=== PATIENT | female | born 1950 | race Caucasian/White ===

== ENCOUNTER 2016-12-14 12:36 | Outpatient (CLI) | payer MEDICAID ==
[2016-12-14 17:51] LABS: BASOPHILS # (AUTO) 0.1 10^3/uL (0.0-0.1); BASOPHILS % (AUTO) 1.2 %; EOSINOPHILS # (AUTO) 0.2 10^3/uL (0.0-0.7); EOSINOPHILS % (AUTO) 2.5 %; HCT - HEMATOCRIT 43.7 % (37.0-47.0); LYMPHOCYTES % (AUTO) 36.3 %; MEAN CORPUSCULAR HEMOGLOBIN 30.3 pg (27.0-31.0); MEAN CORPUSCULAR HGB CONC 34.3 g/dL (32.0-36.0); MEAN CORPUSCULAR VOLUME 88.3 fL (81.0-99.0); MEAN PLATELET VOLUME 8.2 fL (7.9-10.8); MONOCYTES # (AUTO) 0.8 10^3/uL (0.0-1.0); MONOCYTES % (AUTO) 9.6 %; NEUTROPHILS # (AUTO) 4.1 10^3/uL (1.5-6.6); NEUTROPHILS % (AUTO) 50.4 %; RED BLOOD COUNT 4.95 10^6/uL (4.20-5.40); RED CELL DISTRIBUTION WIDTH 13.3 % (12.0-15.0); UNCORRECTED WHITE BLOOD COUNT 8.2 x10^3/uL; WHITE BLOOD COUNT 8.2 x10^3/uL (4.8-10.8)
== END 2016-12-14 12:37 | disposition home or self-care (01) ==
LOC: LAB.F 12:36
PROVIDERS: ATTEND Nurse Practitioner Family
DX: K57.92 Diverticulitis of intestine, part unspecified, without perforation or abscess without bleeding (principal)
CPT/HCPCS: 36415; 85025

== ENCOUNTER 2016-12-17 12:36 | Emergency (ER) | payer MEDICAID, MEDICARE ==
[2016-12-17 13:04] LABS: BILIRUBIN,URINE NEGATIVE (NEGATIVE)
[2016-12-17 13:08] LABS: UA CHARGE (STRIP ONLY) YES; UR CULTURE IF IND NOT INDICATED
[2016-12-17 13:26] LABS: BASOPHILS # (AUTO) 0.1 10^3/uL (0.0-0.1); BASOPHILS % (AUTO) 0.6 %; EOSINOPHILS # (AUTO) 0.1 10^3/uL (0.0-0.7); EOSINOPHILS % (AUTO) 0.5 %; HCT - HEMATOCRIT 42.4 % (37.0-47.0); HGB - HEMOGLOBIN 14.5 g/dL (12.0-16.0); LYMPHOCYTES # (AUTO) 2.2 10^3/uL (1.5-3.5); LYMPHOCYTES % (AUTO) 21.3 %; MEAN CORPUSCULAR HEMOGLOBIN 30.2 pg (27.0-31.0); MEAN CORPUSCULAR HGB CONC 34.2 g/dL (32.0-36.0); MEAN CORPUSCULAR VOLUME 88.2 fL (81.0-99.0); MEAN PLATELET VOLUME 7.5 fL (7.9-10.8); MONOCYTES # (AUTO) 0.7 10^3/uL (0.0-1.0); MONOCYTES % (AUTO) 6.6 %; NEUTROPHILS # (AUTO) 7.4 10^3/uL (1.5-6.6); RED BLOOD COUNT 4.81 10^6/uL (4.20-5.40); UNCORRECTED WHITE BLOOD COUNT 10.4 x10^3/uL; WHITE BLOOD COUNT 10.4 x10^3/uL (4.8-10.8)
[2016-12-17 13:38] LABS: ALBUMIN/GLOBULIN RATIO 1.8 (1.0-2.2); BILIRUBIN,TOTAL 1.2 mg/dL (0.2-1.0); CALCIUM 9.2 mg/dL (8.5-10.3); CREATININE 0.5 mg/dL (0.4-1.0); POTASSIUM 3.6 mmol/L (3.5-5.0); TOTAL PROTEIN 7.3 g/dL (6.7-8.2)
--- NOTE | 2016-12-17 15:37 | ED Physician Documentation ---
PD HPI ABD PAIN - Stated complaint Stated Complaint: ABD PX - Chief complaint Chief Complaint: Abd Pain - History obtained from History obtained from: Patient - History of Present Illness Timing - onset: How many weeks ago (2 1/2) Timing - duration: Weeks Timing - details: Gradual onset, Still present, Waxing and waning (had Diverticulitis and treated with Keflex/flagyl with improvement, but not fully resolved. Seen by PCP and had abx extended some. Has been off them for few days and having return of pain again. Had cbc done outpt couple days ago that was normal, so PCP did not think it was still infection.) Quality: Cramping, Aching, Pain Location: Suprapubic, LLQ Improved by: No: BM Worsened by: Palpation. No: Breathing, Position Associated symptoms: Nausea, Dysuria (mild). No: Fever, Vomiting, Diarrhea ( but loose, without blood), Constipation, Hematochezia Similar symptoms before: Diagnosis (diverticulitis) Recently seen: Clinic, Emergency Dept Review of Systems Constitutional: reports: Myalgias. denies: Fever, Chills Nose: denies: Rhinorrhea / runny nose, Congestion Throat: denies: Sore throat Respiratory: denies: Cough GI: reports: Abdominal Pain. 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 : None HEENT: None Psych: None Musculoskeletal: Chronic back pain Derm: None - Past Surgical History Past Surgical History: Yes General: Other HEENT: Tonsil/Adenoidectomy - Present Medications Home Medications: Ambulatory Orders Medication Instructions Recorded Confirmed Ciprofloxacin HCl [Cipro] 500 mg PO BID #14 tablet 12/17/16 Metronidazole [Flagyl] 500 mg PO BID #14 tablet 12/17/16 Naproxen 375 mg PO BID #15 tablet 12/17/16 - Allergies Allergies/Adverse Reactions: Allergies Allergy/AdvReac Type Severity Reaction Status Date / Time Penicillins Allergy Hives Verified 12/17/16 12:46 Sulfa (Sulfonamide Allergy Unknown Verified 12/17/16 12:46 Antibiotics) - Social History Does the pt smoke?: Yes Smoking Status: Current every day smoker Does the pt drink ETOH?: Yes Does the pt have substance abuse?: No - Family History Family history: reports: Non contributory - Immunizations Immunizations are current?: No Immunizations: TDAP current <10years, Other immun not current - POLST Patient has POLST: No PD ED PE NORMAL - Vitals Vital signs reviewed: Yes - General General: Alert and oriented X 3, No acute distress, Well developed/nourished - HEENT HEENT: Pharynx benign - Neck Neck: Supple, no meningeal sign, No adenopathy - Cardiac Cardiac: RRR, No murmur - Respiratory Respiratory: Clear bilaterally - Abdomen Abdomen: Normal bowel sounds, Soft, Non distended, No organomegaly, Other ( tender with local guarding but no percussion nor rebound tenderness LLQ area. ) - Female Female : Deferred - Rectal Rectal: Deferred - Derm Derm: Normal color, Warm and dry - Extremities Extremities: No deformity, No tenderness to palpate, No edema, No calf tenderness / cord - Neuro Neuro: Alert and oriented X 3, No motor deficit, Normal speech Results - Vitals Vitals: Oxygen O2 Source Room air - Labs Labs: Laboratory Tests 12/17/16 12/17/16 12/17/16 07:45 07:45 12:58 WBC 10.4 RBC 4.81 Hgb 14.5 Hct 42.4 MCV 88.2 MCH 30.2 MCHC 34.2 RDW 13.0 Plt Count 287 MPV 7.5 L Neut # 7.4 H Lymph # 2.2 [place] # 0.7 Eos # 0.1 Baso # 0.1 Absolute Nucleated RBC 0.00 Nucleated RBC % 0.0 Sodium 127 L Potassium 3.6 Chloride 93 L Carbon Dioxide 25 Anion Gap 9.0 BUN 7 Creatinine 0.5 Estimated GFR (MDRD) 124 Glucose 109 H Calcium 9.2 Total Bilirubin 1.2 H AST 18 ALT 22 Alkaline Phosphatase 58 Total Protein 7.3 Albumin 4.7 Globulin 2.6 Albumin/Globulin Ratio 1.8 Lipase 29 Urine Color YELLOW Urine Clarity CLEAR Urine pH 6.0 Ur Specific [place] <=1.005 Urine Protein NEGATIVE Urine Glucose (UA) NEGATIVE Urine Ketones NEGATIVE Urine Occult Blood NEGATIVE Urine Nitrite NEGATIVE Urine Bilirubin NEGATIVE Urine Urobilinogen 0.2 (NORMAL) Ur Leukocyte Esterase NEGATIVE Ur Microscopic Review NOT INDICATED Urine Culture Comments NOT INDICATED - Rads (name of study) abd CT Radiology: Prelim report reviewed (moderate sigmoid diverticulitis without abscess nor perforation. ) PD MEDICAL DECISION MAKING - ED course Complexity details: reviewed results (diverticulitis present in sigmoid. No complications. She would prefer to treat outpatient. Had not resolved with Keflex/Flagyl. Allergic to PCN so can't use Augmentin. also allergic to Sulfa. Talked with her about quinolone as option and seems limited to that at this time. ), considered differential, d/w patient Departure - Departure Disposition: Home, Self Care Clinical Impression: Diverticulitis of sigmoid colon Abdominal pain Qualifiers: Abdominal location: left lower quadrant Qualified Code(s): R10.32 - Left lower quadrant pain Condition: Stable Record reviewed to determine appropriate education?: Yes Instructions: ED Diverticulitis Follow-Up: Olivia Miner ARNP [Primary Care Provider] - Prescriptions: Ciprofloxacin HCl [Cipro] 500 mg PO BID #14 tablet Metronidazole [Flagyl] 500 mg PO BID #14 tablet Naproxen 375 mg PO BID #15 tablet Comments: Cipro and metronidazole both twice daily for the next week to 10 days for the diverticulitis. Naproxen twice daily for the next week for inflammation. Do probiotics and stool softeners during this time. Add Tylenol or the Percocet you have at home if needed for pains. Recheck with us or your primary care if not improved over the next 3-4 days. Discharge Date/Time: 12/17/16 18:10
[2016-12-17] MEDS ORDERED: SODIUM CHLORIDE 0.9% 1,000 ML IV ONE (16:04)
[2016-12-17] MEDS ORDERED: KETOROLAC 60 MG/2 ML VIAL IVP STA (16:04)
[2016-12-17] MEDS ORDERED: HYDROmorphone 0.5 MG/0.5 ML SYRINGE IVP STA (16:04)
[2016-12-17] MEDS ORDERED: metroNIDAZOLE 500 MG/100 ML 500 MG/100 ML BAG IV ONE (16:05)
[2016-12-17] MEDS ORDERED: HYDROmorphone 1 MG/ML SYRINGE IVP STA (16:09)
[2016-12-17] MEDS ORDERED: HYDROmorphone 1 MG/ML SYRINGE ONE (16:17)
[2016-12-17] MEDS ORDERED: KETOROLAC 30 MG/ML VIAL ONE (16:18)
[2016-12-17] MEDS ORDERED: metroNIDAZOLE 500 MG/100 ML 500 MG/100 ML BAG ONE (16:18)
[2016-12-17] MEDS ORDERED: IOPAMIDOL-300 100 ML VIAL ONE (16:26)
[2016-12-17] MEDS ORDERED: SODIUM CHLORIDE FLUSH 0.9% 10 ML SYRINGE IVP ONE (16:27)
[2016-12-17] MEDS ORDERED: IOPAMIDOL-300 100 ML VIAL IVP ONE (16:50)
[2016-12-17] MEDS ORDERED: KETOROLAC 60 MG/2 ML VIAL ONE (16:54)
--- NOTE | 2016-12-17 17:12 | CT Preliminary Report ---
Exam: CT ABDOMEN/PELVIS W/ IMPRESSION: 1. Moderate acute sigmoid diverticulitis without evidence for perforation or abscess. 2. Minimal free fluid in the pelvis in the posterior cul-de-sac. 3. Otherwise, as above. [facility] SITE ID: [id number]
--- NOTE | 2016-12-17 17:15 | CT Report ---
EXAM: CT ABDOMEN AND PELVIS EXAM DATE: 12/17/2016 04:50 PM. CLINICAL HISTORY: Left lower quadrant pain for 2 weeks despite PO meds for divertic. COMPARISONS: CT abdomen pelvis 05/05/2015. TECHNIQUE: Routine helical CT imaging was performed through the abdomen and pelvis. IV contrast: 100 mL Isovue 300. Enteric contrast: No. Reconstructions: Coronal and sagittal. In accordance with CT protocol optimization, one or more of the following dose reduction techniques w ere utilized for this exam: automated exposure control, adjustment of mA and/or KV based on patient s ize, or use of iterative reconstructive technique. FINDINGS: Lung Bases: Unremarkable. Liver: Small nonspecific low density mass seen in the left hepatic lobe lateral segment measures 9 mm and appears unchanged, could represent a small liver cyst. Gallbladder/Bile Ducts: Unremarkable. Spleen: Normal. Pancreas: Normal. Adrenal Glands: Normal. Kidneys: Small low density mass in the anterior right kidney, measures 9 mm, most likely a small priyanka l cyst. No hydronephrosis. Peritoneal Cavity/Bowel: Moderate diffuse colonic wall thickening with adjacent stranding consistent with acute diverticulitis, less severe than on the prior CT. No evidence for perforation or abscess. Mild sigmoid diverticulosis. Mild number of scattered diverticula in the descending and transverse co kathy. No evidence for bowel obstruction. Minimal free fluid in the pelvis in the posterior cul-de-sac Pelvic Organs: Normal. The bladder and visualized pelvic organs are within normal limits. Vasculature: No acute findings. Bones: No acute bone findings. IMPRESSION: 1. Moderate acute sigmoid diverticulitis without evidence for perforation or abscess. 2. Minimal free fluid in the pelvis in the posterior cul-de-sac. 3. Otherwise, as above. [facility] Referring Provider Line: [phone] SITE ID: [id number]
[2016-12-17] MEDS ORDERED: ACETAMINOPHEN 325 MG TABLET PO STA (17:47)
[2016-12-17] MEDS ORDERED: CIPROFLOXACIN 250 MG TABLET PO STA (17:47)
[2016-12-17] MEDS ORDERED: CIPROFLOXACIN 250 MG TABLET PO ONE (17:58)
[2016-12-17] MEDS ORDERED: ACETAMINOPHEN 325 MG TABLET PO ONE (17:58)
[2016-12-17 18:05] VITALS: BP 133/72
== END 2016-12-17 18:10 | disposition home or self-care (01) ==
LOC: ED 12:36
DX: K57.32 Diverticulitis of large intestine without perforation or abscess without bleeding (principal); F17.200 Nicotine dependence, unspecified, uncomplicated
CPT/HCPCS: 36415; 74177; 80053; 81003; 83690; 85025; 96365; 96375; 99283; 99284; A9270; J1170; Q9967; 81001; 87086

== ENCOUNTER 2018-11-15 08:04 | Outpatient (CLI) | payer MEDICAID, MEDICARE ==
[2018-11-15 09:13] LABS: BASOPHILS # (AUTO) 0.1 10^3/uL (0.0-0.1); BASOPHILS % (AUTO) 1.3 %; EOSINOPHILS # (AUTO) 0.3 10^3/uL (0.0-0.7); EOSINOPHILS % (AUTO) 4.9 %; LYMPHOCYTES # (AUTO) 2.4 10^3/uL (1.5-3.5); LYMPHOCYTES % (AUTO) 36.1 %; MEAN CORPUSCULAR HEMOGLOBIN 30.4 pg (27.0-31.0); MEAN CORPUSCULAR HGB CONC 33.6 g/dL (32.0-36.0); MEAN CORPUSCULAR VOLUME 90.5 fL (81.0-99.0); MEAN PLATELET VOLUME 9.8 fL (7.9-10.8); MONOCYTES # (AUTO) 0.7 10^3/uL (0.0-1.0); NEUTROPHILS # (AUTO) 3.1 10^3/uL (1.5-6.6); NEUTROPHILS % (AUTO) 46.4 %; PLT - PLATELET COUNT 261 10^3/uL (130-450); RED BLOOD COUNT 4.93 10^6/uL (4.20-5.40); RED CELL DISTRIBUTION WIDTH 12.9 % (12.0-15.0); WHITE BLOOD COUNT 6.7 x10^3/uL (4.8-10.8)
[2018-11-15 09:27] LABS: ALBUMIN 4.3 g/dL (3.2-5.5); ALBUMIN/GLOBULIN RATIO 1.7 (1.0-2.2); ALKALINE PHOSPHATASE 54 IU/L (42-121); ALT ALANINE AMINOTRANSFERASE 20 IU/L (10-60); AST ASPARTATE AMINOTRANSFERASE 17 IU/L (10-42); BILIRUBIN,TOTAL 1.3 mg/dL (0.2-1.0); BUN - BLOOD UREA NITROGEN 13 mg/dL (6-20); CALCIUM 9.2 mg/dL (8.5-10.3); CARBON DIOXIDE - CO2 28 mmol/L (21-32); CHLORIDE 100 mmol/L (101-111); CHOL/HDL RATIO 3.7 (<4.4); CHOLESTEROL 209 mg/dL; CREATININE 0.7 mg/dL (0.4-1.0); GFR - MDRD 84 (>89); GLUCOSE 101 mg/dL (70-100); HDL CHOLESTEROL 57 mg/dL; LDL CHOLESTEROL,CALCULATED 137 mg/dL; LDL/HDL RATIO 2.4 (<4.4); SODIUM 136 mmol/L (135-145); TOTAL PROTEIN 6.8 g/dL (6.7-8.2); VLDL CHOLESTEROL 15 mg/dL
== END 2018-11-15 08:05 | disposition home or self-care (01) ==
LOC: LAB 08:04
PROVIDERS: ATTEND Nurse Practitioner
DX: Z13.228 Encounter for screening for other metabolic disorders (principal); F17.210 Nicotine dependence, cigarettes, uncomplicated; Z13.6 Encounter for screening for cardiovascular disorders; Z13.220 Encounter for screening for lipoid disorders
CPT/HCPCS: 36415; 80053; 80061; 83721; 84443; 85025

== ENCOUNTER 2020-07-20 15:42 | Emergency (ER) | payer MEDICARE, OTHER ==
[2020-07-20 16:38] LABS: BASOPHILS # (AUTO) 0.1 10^3/uL (0.0-0.1); BASOPHILS % (AUTO) 0.5 %; EOSINOPHILS # (AUTO) 0.1 10^3/uL (0.0-0.7); HCT - HEMATOCRIT 45.2 % (37.0-47.0); HGB - HEMOGLOBIN 15.5 g/dL (12.0-16.0); LYMPHOCYTES # (AUTO) 1.6 10^3/uL (1.5-3.5); LYMPHOCYTES % (AUTO) 12.4 %; MEAN CORPUSCULAR HEMOGLOBIN 30.9 pg (27.0-31.0); MEAN CORPUSCULAR HGB CONC 34.3 g/dL (32.0-36.0); MEAN PLATELET VOLUME 10.1 fL (7.9-10.8); MONOCYTES # (AUTO) 0.7 10^3/uL (0.0-1.0); MONOCYTES % (AUTO) 5.3 %; NEUTROPHILS # (AUTO) 10.1 10^3/uL (1.5-6.6); NEUTROPHILS % (AUTO) 80.5 %; PLT - PLATELET COUNT 276 10^3/uL (130-450); RED BLOOD COUNT 5.02 10^6/uL (4.20-5.40); RED CELL DISTRIBUTION WIDTH 12.6 % (12.0-15.0); WHITE BLOOD COUNT 12.6 x10^3/uL (4.8-10.8)
[2020-07-20 16:45] LABS: ALBUMIN 4.8 g/dL (3.2-5.5); ALBUMIN/GLOBULIN RATIO 1.8 (1.0-2.2); BILIRUBIN,TOTAL 1.4 mg/dL (0.2-1.0); CALCIUM 9.4 mg/dL (8.5-10.3); CREATININE 0.7 mg/dL (0.4-1.0); POTASSIUM 3.8 mmol/L (3.5-5.0); TOTAL PROTEIN 7.5 g/dL (6.7-8.2)
--- NOTE | 2020-07-20 16:49 | ED Physician Documentation ---
PD HPI ABD PAIN - Stated complaint Stated Complaint: ABD PAIN & CRAMPING - Chief complaint Chief Complaint: Abd Pain - History obtained from History obtained from: Patient - History of Present Illness Timing - onset: How many weeks ago (1) Timing - duration: Weeks (1) Timing - details: Gradual onset, Waxing and waning Pain level max: 8 Pain level now: 6 Quality: Cramping, Aching Associated symptoms: Nausea, Constipation. No: Vomiting, Hematemesis, Diarrhea Recently seen: Not recently seen - Additional information Additional information: Patient is a 69-year-old female has had constipation for the past week. Nothing makes it better or worse. Attempted enema x2 at home without relief. Nausea but no vomiting. Gradual onset, waxing and waning. No fevers. No chills. No recent antibiotics. Review of Systems Ten Systems: 10 systems reviewed and negative Constitutional: denies: Fever, Chills Throat: denies: Sore throat Cardiac: denies: Chest pain / pressure, Palpitations Respiratory: denies: Cough GI: reports: Constipation. 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 : None HEENT: None Psych: None Musculoskeletal: Chronic back pain Derm: None - Past Surgical History Past Surgical History: Yes General: Other HEENT: Tonsil/Adenoidectomy - Present Medications Home Medications: Ambulatory Orders Medication Instructions Recorded Confirmed Ciprofloxacin HCl [Cipro] 500 mg PO BID #14 tablet 12/17/16 Naproxen 375 mg PO BID #15 tablet 12/17/16 metroNIDAZOLE [Flagyl] 500 mg PO BID #14 tablet 12/17/16 polyethylene glycoL 3350 [Miralax] 17 gm PO DAILY PRN #1 bottle 07/20/20 - Allergies Allergies/Adverse Reactions: Allergies Allergy/AdvReac Type Severity Reaction Status Date / Time Penicillins Allergy Hives Verified 07/20/20 16:10 Sulfa (Sulfonamide Allergy Unknown Verified 07/20/20 16:10 Antibiotics) - Social History Does the pt smoke?: Yes Smoking Status: Current every day smoker Does the pt drink ETOH?: Yes Does the pt have substance abuse?: No - Immunizations Immunizations are current?: No Immunizations: TDAP current <10years, Other immun not current - POLST Patient has POLST: No PD ED PE NORMAL - Vitals Vital signs reviewed: Yes - General General: Alert and oriented X 3, No acute distress - HEENT HEENT: Moist mucous membranes - Neck Neck: Supple, no meningeal sign - Cardiac Cardiac: RRR - Respiratory Respiratory: No respiratory distress, Clear bilaterally - Abdomen Abdomen: Soft, Non tender, Non distended - Derm Derm: Warm and dry - Neuro Neuro: Alert and oriented X 3 - Psych Psych: Normal mood Results - Vitals Vitals: Vital Signs - 24 hr 07/20/20 07/20/20 07/20/20 16:04 18:10 20:00 Temperature 36.2 C L Heart Rate 81 70 90 Respiratory 18 18 19 Rate Blood Pressure 136/74 H 149/81 H 151/83 H O2 Saturation 99 100 96 07/20/20 20:23 Temperature Heart Rate 86 Respiratory 19 Rate Blood Pressure 125/86 H O2 Saturation 95 Oxygen O2 Source Room air - Labs Labs: Laboratory Tests 07/20/20 07/20/20 07/20/20 16:28 16:28 17:08 WBC 12.6 H RBC 5.02 Hgb 15.5 Hct 45.2 MCV 90.0 MCH 30.9 MCHC 34.3 RDW 12.6 Plt Count 276 MPV 10.1 Neut # (Auto) 10.1 H Lymph # (Auto) 1.6 [place] # (Auto) 0.7 Eos # (Auto) 0.1 Baso # (Auto) 0.1 Absolute Nucleated RBC 0.00 Nucleated RBC % 0.0 Sodium 131 L Potassium 3.8 Chloride 96 L Carbon Dioxide 24 Anion Gap 11.0 BUN 10 Creatinine 0.7 Estimated GFR (MDRD) 83 L Glucose 120 H Calcium 9.4 Total Bilirubin 1.4 H AST 20 ALT 21 Alkaline Phosphatase 56 Total Protein 7.5 Albumin 4.8 Globulin 2.7 Albumin/Globulin Ratio 1.8 Lipase 31 Urine Color YELLOW Urine Clarity CLEAR Urine pH 5.5 Ur Specific [place] 1.025 Urine Protein NEGATIVE Urine Glucose (UA) NEGATIVE Urine Ketones 15 H Urine Occult Blood NEGATIVE Urine Nitrite NEGATIVE Urine Bilirubin NEGATIVE Urine Urobilinogen 0.2 (NORMAL) Ur Leukocyte Esterase NEGATIVE Ur Microscopic Review NOT INDICATED Urine Culture Comments NOT INDICATED - Rads (name of study) CT Abd/pelvis Radiology: Prelim report reviewed, EMP read contemporaneously, See rad report (Diffuse stool burden noted throughout the colon. Recommend correlation for constipation.) PD MEDICAL DECISION MAKING - ED course Complexity details: reviewed results, re-evaluated patient, considered differential, d/w patient ED course: 69-year-old female with constipation. Given an enema and magnesium citrate. Patient had a large bowel movement in the emergency department and feels better. No acute findings on CT scan other than constipation. Patient counseled regarding signs and symptoms for which I believe and urgent re-evaluation would be necessary. Patient with good understanding of and agreement to plan and is comfortable going home at this time This document was made in part using voice recognition software. While efforts are made to proofread this document, sound alike and grammatical errors may occur. Departure - Departure Disposition: 01 Home, Self Care Clinical Impression: Constipation Qualifiers: Constipation type: unspecified constipation type Qualified Code(s): K59.00 - Constipation, unspecified Condition: Good Instructions: ED Constipation Follow-Up: your,doctor in 1 week [Other] Prescriptions: polyethylene glycoL 3350 [Miralax] 17 gm PO DAILY PRN #1 bottle PRN Reason: Constipation Comments: Drink plenty of water at home. Return if you worsen. Follow-up with your doctor for further care. Discharge Date/Time: 07/20/20 20:47
[2020-07-20] MEDS ORDERED: IOPAMIDOL-300 100 ML VIAL ONE (16:52)
[2020-07-20 17:18] LABS: BILIRUBIN,URINE NEGATIVE (NEGATIVE); CLARITY,URINE CLEAR (CLEAR); GLUCOSE, URINE (UA) NEGATIVE (NEGATIVE); KETONES,URINE (UA) 15 mg/dL (NEGATIVE); LEUKOCYTE ESTERASE, URINE NEGATIVE (NEGATIVE); NITRITE,URINE NEGATIVE (NEGATIVE); OCCULT BLOOD,URINE NEGATIVE (NEGATIVE); PH,URINE 5.5 PH (5.0-7.5); PROTEIN,URINE NEGATIVE (NEGATIVE); UROBILINOGEN,URINE 0.2 (NORMAL) E.U./dL (NORMAL)
[2020-07-20] MEDS ORDERED: MAGNESIUM CITRATE 296 ML BOTTLE PO STA (17:37)
[2020-07-20] MEDS ORDERED: SOAP SUDS ENEMA 1 EACH RC ONE (17:37)
[2020-07-20] MEDS ORDERED: IOPAMIDOL-300 100 ML VIAL IVP ONE (17:42)
--- NOTE | 2020-07-20 18:33 | CT Report ---
PROCEDURE: Abdomen/Pelvis W INDICATIONS: diffuse abd pain CONTRAST: IV CONTRAST: Isovue 300 ml: 100 PO CONTRAST: *NO PO CONTRAST TECHNIQUE: After the administration of nonionic contrast, 5 mm thick sections acquired from the diaphragms to th e symphysis. 5 mm thick coronal and sagittal reformats were acquired. For radiation dose reduction, the following was used: automated exposure control, adjustment of mA and/or kV according to patient size. COMPARISON: None. FINDINGS: Image quality: Excellent. ABDOMEN: Lung bases: Lung bases are clear. Heart size is normal. Very small hiatal hernia. Solid organs: Subcentimeter hypodensity within the left hepatic lobe too small to further characteriz e but statistically represents a simple cyst. The liver is otherwise unremarkable. Spleen is unremark able. Gallbladder unremarkable Biliary system is non dilated. Pancreas enhances normally. No adre nal nodules. Kidneys demonstrate normal size and enhancement, without hydronephrosis. 1.2 cm simple cyst within the right kidney. Peritoneum and bowel: The stomach and small bowel are unremarkable without evidence of wall thickenin g or stranding inflammation. No ascites or pneumoperitoneum. No evidence of appendicitis. There is di ffuse stool noted throughout the colon which is mildly distended. No significant surrounding inflamma tion. There are a few scattered diverticula. Nodes and vessels: No retroperitoneal or mesenteric adenopathy by size criteria. Aorta and inferior vena cava are normal in size. Miscellaneous: No ventral hernias. PELVIS: Genitourinary: Bladder wall thickness is normal. Miscellaneous: No inguinal hernias or adenopathy. Bones: No suspicious bony lesions. No vertebral body compression fractures. IMPRESSION: Diffuse stool burden noted throughout the colon. Recommend correlation for constipation. Scattered diverticulosis. Reviewed by: Atilio Ayala DO on 07/20/2020 5:31 PM [facility] Approved by: Atilio Ayala DO on 07/20/2020 5:31 PM [facility] Station ID: [id number]
[2020-07-20] MEDS ORDERED: ONDANSETRON ODT 4 MG TABLET TL STA (20:09)
[2020-07-20 20:23] VITALS: BP 125/86
== END 2020-07-20 20:47 | disposition home or self-care (01) ==
LOC: ED 15:42
DX: K59.00 Constipation, unspecified (principal); F17.200 Nicotine dependence, unspecified, uncomplicated
CPT/HCPCS: 36415; 74177; 80053; 81003; 83690; 85025; 99284; A9270; Q0162; Q9967; 81001; 87086

== ENCOUNTER 2022-08-12 08:00 | Outpatient (CLI) | payer MEDICARE, OTHER | END 2022-08-12 23:59 | disposition home or self-care (01) | LOC: LAB.N 08:00 | PROVIDERS: ATTEND Registered Nurse | DX: R82.79 Other abnormal findings on microbiological examination of urine (principal) | CPT/HCPCS: 87086 ==

== ENCOUNTER 2022-08-12 14:30 | Outpatient (CLI) | payer MEDICARE, OTHER ==
--- NOTE | 2022-08-13 14:36 | XRAY Report ---
PROCEDURE: Lumbar Spine 2 View INDICATIONS: LOW BACK PAIN TECHNIQUE: 3 views of the lumbar spine were acquired. COMPARISON: CT abdomen pelvis 07/20/2020 FINDINGS: Bones: 5 [id number] vertebrae are present. Minimal right convexity curvature centered at L2-L3 . Mild multilevel degenerative changes with disc height loss, endplate spurring, and facet arthropath y. 3 mm retrolisthesis L5 on S1. No definite lumbar compression fracture. Soft tissues: Overlying bowel gas pattern is normal. Vascular calcifications are present. IMPRESSION: Multilevel degenerative changes of the lumbar spine. Reviewed by: Tate Orourke MD on 08/13/2022 2:34 PM PDT Approved by: Tate Orourke MD on 08/13/2022 2:34 PM PDT Station ID: [id number]
--- NOTE | 2022-08-13 14:45 | XRAY Report ---
PROCEDURE: Hip w/Pelvis 1V RT INDICATIONS: HIP PAIN TECHNIQUE: AP pelvis with lateral view(s) of the right hip(s). COMPARISON: None. FINDINGS: Bones: No fractures or dislocations. No suspicious bony lesions. Minimal/equivocal joint space na rrowing and spurring. Soft tissues: No suspicious soft tissue calcifications . IMPRESSION: No acute bony abnormality. Minimal/equivocal right hip degenerative change. Reviewed by: Tate Orourke MD on 08/13/2022 2:44 PM PDT Approved by: Tate Orourke MD on 08/13/2022 2:44 PM PDT Station ID: [id number]
== END 2022-08-12 14:45 | disposition home or self-care (01) ==
LOC: DI.N 14:30
PROVIDERS: ATTEND Registered Nurse
DX: M47.816 Spondylosis without myelopathy or radiculopathy, lumbar region (principal); M16.11 Unilateral primary osteoarthritis, right hip; R82.79 Other abnormal findings on microbiological examination of urine
CPT/HCPCS: 87086

== ENCOUNTER 2022-11-10 07:14 | Outpatient (CLI) | payer MEDICARE, OTHER ==
[2022-11-10 07:29] LABS: BASOPHILS # (AUTO) 0.1 10^3/uL (0.0-0.1); EOSINOPHILS # (AUTO) 0.3 10^3/uL (0.0-0.7); EOSINOPHILS % (AUTO) 3.7 %; HCT - HEMATOCRIT 45.7 % (37.0-47.0); HGB - HEMOGLOBIN 15.4 g/dL (12.0-16.0); LYMPHOCYTES # (AUTO) 3.4 10^3/uL (1.5-3.5); LYMPHOCYTES % (AUTO) 46.3 %; MEAN CORPUSCULAR HEMOGLOBIN 30.4 pg (27.0-31.0); MEAN CORPUSCULAR HGB CONC 33.7 g/dL (32.0-36.0); MEAN CORPUSCULAR VOLUME 90.3 fL (81.0-99.0); MEAN PLATELET VOLUME 9.7 fL (7.9-10.8); MONOCYTES # (AUTO) 0.7 10^3/uL (0.0-1.0); MONOCYTES % (AUTO) 9.7 %; NEUTROPHILS # (AUTO) 2.8 10^3/uL (1.5-6.6); NEUTROPHILS % (AUTO) 39.2 %; PLT - PLATELET COUNT 237 10^3/uL (130-450); RED BLOOD COUNT 5.06 10^6/uL (4.20-5.40); RED CELL DISTRIBUTION WIDTH 13.1 % (12.0-15.0); WHITE BLOOD COUNT 7.3 x10^3/uL (4.8-10.8)
[2022-11-10 07:49] LABS: ALBUMIN 4.5 g/dL (3.2-5.5); ALBUMIN/GLOBULIN RATIO 2.1 (1.0-2.2); ALKALINE PHOSPHATASE 59 IU/L (42-121); ALT ALANINE AMINOTRANSFERASE 16 IU/L (10-60); AST ASPARTATE AMINOTRANSFERASE 14 IU/L (10-42); BUN - BLOOD UREA NITROGEN 10 mg/dL (6-20); CALCIUM 9.5 mg/dL (8.5-10.3); CARBON DIOXIDE - CO2 29 mmol/L (21-32); CHLORIDE 102 mmol/L (101-111); CHOLESTEROL 190 mg/dL; CREATININE 0.6 mg/dL (0.6-1.3); GFR - MDRD 99 (>89); GLUCOSE 104 mg/dL (74-104); HDL CHOLESTEROL 63 mg/dL; LDL CHOLESTEROL,CALCULATED 110 mg/dL; LDL/HDL RATIO 1.7 (<4.4); POTASSIUM 4.3 mmol/L (3.5-4.5); SODIUM 135 mmol/L (135-145); TOTAL PROTEIN 6.6 g/dL (6.4-8.9); TRIGLYCERIDES 84 mg/dL (48-352); VLDL CHOLESTEROL 17 mg/dL
[2022-11-10 07:58] LABS: THYROID STIMULATING HORMONE 2.18 uIU/mL (0.34-5.60)
== END 2022-11-10 07:15 | disposition home or self-care (01) ==
LOC: LAB 07:14
PROVIDERS: ATTEND Physician Assistant
DX: E66.9 Obesity, unspecified (principal); E78.5 Hyperlipidemia, unspecified
CPT/HCPCS: 36415; 80053; 80061; 83721; 84443; 85025

== ENCOUNTER 2022-12-02 17:37 | Outpatient (CLI) | payer MEDICARE, OTHER ==
--- NOTE | 2022-12-03 09:00 | MRI Report ---
PROCEDURE: LUMBAR SPINE WO INDICATIONS: LUMBAR BACK PAIN TECHNIQUE: Noncontrast sagittal T1 spin echo and T2 fast echo, sagittal STIR, axial T1 and T2 fast spin echo thr ough the lumbar spine. In cases with scoliosis, additional coronal T2 fast spin echo may be performe d. COMPARISON: Lumbar spine plain films dated 08/12/2022. FINDINGS: Image quality: Excellent. Alignment and Curvature: There is normal bony alignment. Bone Marrow: Marrow is of normal overall signal. No acute vertebral body compression fractures. Spinal Cord: Conus medullaris terminates at the L1-L2 level. Visualized cord demonstrates normal si gnal and size. Paraspinous Soft Tissues: No paravertebral masses. T12-L1: Normal in appearance. L1-L2: Normal in appearance. L2-L3: Normal in appearance. L3-L4: Mild disc bulge. Mild facet hypertrophy. No canal stenosis or foraminal stenosis. L4-L5: Mild facet hypertrophy. Annulus tear without significant disc bulge. No canal stenosis or fo raminal stenosis. L5-S1: Minimal disc bulge. Facet hypertrophy. A left foraminal disc bulge abuts the left L5 nerve patrick t in the left foramen with mild to moderate foraminal stenosis. IMPRESSION: 1. Mild multilevel facet arthropathy. 2. No canal stenosis or foraminal nerve root impingement. 3. Annulus tear at L4-L5. 4. Left foraminal disc bulge abutting the left L5 nerve root in the left foramen at L5-S1. There is m ild to moderate left foraminal stenosis. Reviewed by: Kostas Biggs MD on 12/03/2022 8:58 AM PDT Approved by: Kostas Biggs MD on 12/03/2022 8:58 AM PDT Station ID: [id number]
== END 2022-12-02 17:38 | disposition home or self-care (01) ==
LOC: DI 17:37
PROVIDERS: ATTEND Physician Assistant
DX: M47.26 Other spondylosis with radiculopathy, lumbar region (principal); M47.27 Other spondylosis with radiculopathy, lumbosacral region; M51.16 Intervertebral disc disorders with radiculopathy, lumbar region; M51.17 Intervertebral disc disorders with radiculopathy, lumbosacral region; M48.07 Spinal stenosis, lumbosacral region